=== PATIENT | female | born 1940 | race Caucasian/White ===

== ENCOUNTER 2019-08-15 20:06 | Emergency (ER) | payer OTHER ==
[~2019-08-15] VITALS: Ht 160 cm; Wt 101.2 kg
[2019-08-16] MEDS ORDERED: diphenhdrAMINE HCL 50 MG/1 ML VL IV ONE (00:45)
[2019-08-16] MEDS ORDERED: ONDANSETRON HCL 4 MG/2 ML VIAL IV ONE (00:45)
[2019-08-16] MEDS ORDERED: SODIUM CHLORIDE 0.9% 1,000 ML IV ONE (00:45)
[2019-08-16 00:59] LABS: Urine Bacteria MOD /hpf (None Seen); Urine Blood 1+ /uL (Negative); Urine Specific Gravity 1.018 (1.001-1.035); Urine WBC 2 /hpf (0 - 5)
[2019-08-16 01:12] LABS: Alcohol, Urine < 3.0 mg/dL (0-5); Amphetamine Screen, Urine NEGATIVE (NEGATIVE); Barbiturate Scree,Urine NEGATIVE (NEGATIVE); Benzodiazephine Screen, Urine NEGATIVE (NEGATIVE); Cannabinoid Screen, Urine NEGATIVE (NEGATIVE); Cocaine Screen, Urine NEGATIVE (NEGATIVE); Opiate Scree,Urine NEGATIVE (NEGATIVE); Phencyclidine Screen, Urine NEGATIVE (NEGATIVE)
[2019-08-16] MEDS ORDERED: LORazepam 2MG/ML-1ML VIAL IV ONE ×3 (01:30→07:30)
[2019-08-16 02:11] LABS: Basophils # (auto) 0 uL; Eosinophils # (auto) 0 uL; Hematocrit 40.9 % (36.0-46.0); Hemoglobin 13.5 g/dL (12.2-16.2); Lymphocytes # (auto) 0.7 uL; Lymphocytes % (auto) 4.8 % (10.0-50.0); Mean Corpuscular Hemoglobin 26.5 pg (28.0-32.0); Mean Corpuscular Hgb Conc. 33.1 g/dL (32.0-36.0); Mean Corpuscular Volume 80.1 fL (80.0-100.0); Monocytes # (auto) 0.2 uL; Monocytes % (auto) 1.2 % (0.0-12.0); Neutrophils # (auto) 13.3 uL; Platelet Count (auto) 184 10^3/uL (140-450); Red Cell Distribution Width 15.8 % (11.8-14.3); White Blood Cell 14.2 10^3/uL (4.4-10.8)
[2019-08-16] MEDS ORDERED: InsuLIN REG 1unit/0.01ml Soln (100units/ml) IV ONE (02:15)
[2019-08-16 02:17] LABS: Albumin 3.3 g/dL (3.4-5.0); BUN/Creatinine Ratio 19.3; Calcium 8.9 mg/dL (8.5-10.1); Potassium 4.7 mmol/L (3.5-5.1)
[2019-08-16 02:20] LABS: Bilirubin, Total 0.6 mg/dL (0.2-1.0); Total Protein 7.5 g/dL (6.4-8.2)
[2019-08-16 03:07] LABS: Lactic Acid w/Reflex 2.7 mmol/L (0.4-2.0)
[2019-08-16] MEDS ORDERED: HALOPERIDOL LACTATE 5 MG/ML INJ VIAL IM ONE (04:00)
[2019-08-16] MEDS ORDERED: SODIUM CHLORIDE 0.9% 3,050 ML IV ONE (04:30)
[2019-08-16] MEDS ORDERED: VANCOMYCIN PER PHARMACY 1,000 MG IV SCH (04:30)
[2019-08-16 05:12] LABS: Creatine Kinase IFCC 116 U/L (26-192)
[2019-08-16] MEDS ORDERED: VANCOMYCIN 1GM/250ML 250 ML IV ONE (05:30)
[2019-08-16] MEDS ORDERED: ACETAMINOPHEN 650 MG RECT SUPP PR ONE (06:15)
[2019-08-16 08:00] LABS: INR 1.04 (0.9-1.15); Partial Thromboplastin Time 26.5 sec (23.64-32.05)
[2019-08-16 08:08] VITALS: BP 115/50
== END 2019-08-16 08:25 | disposition short-term general hospital (02) ==
LOC: ER 20:06 → EDBD 20:06 → ER 08-16 08:25
DX: A41.9 Sepsis, unspecified organism (principal); R41.82 Altered mental status, unspecified; E11.9 Type 2 diabetes mellitus without complications; I10 Essential (primary) hypertension; Z90.49 Acquired absence of other specified parts of digestive tract
CPT/HCPCS: 36415; 36600; 70450; 71045; 80053; 80307; 81001; 82140; 82550; 82805; 82962; 83605; 84484; 85025; 85379; 85384; 85610; 85730; 87040; 87086; 87088; 87186; 96361; 96365; 96366; 96372; 96375; 96376; 99285; J1200; J1630; J1815; J2060; J2405; J3370; J7030

== ENCOUNTER 2019-09-16 20:10 | Emergency (ER) | payer OTHER ==
[~2019-09-16] VITALS: Ht 165.1 cm; Wt 77.1 kg
[2019-09-16 22:31] LABS: Basophils # (auto) 0 uL; Basophils % (auto) 0.1 % (0.0-2.0); Eosinophils # (auto) 0.4 uL; Hematocrit 37.6 % (36.0-46.0); Lymphocytes # (auto) 1.5 uL; Lymphocytes % (auto) 14.4 % (10.0-50.0); Monocytes # (auto) 0.5 uL; Platelet Count (auto) 220 10^3/uL (140-450)
[2019-09-16 22:33] LABS: Eosinophils % (auto) 4.2 % (0.0-7.0); Hemoglobin 12.5 g/dL (12.2-16.2); Mean Corpuscular Hemoglobin 26.7 pg (28.0-32.0); Mean Corpuscular Hgb Conc. 33.2 g/dL (32.0-36.0); Mean Corpuscular Volume 80.4 fL (80.0-100.0); Monocytes % (auto) 4.3 % (0.0-12.0); Red Blood Cells 4.67 10^6/uL (4.0-5.20); Red Cell Distribution Width 16.5 % (11.8-14.3); White Blood Cell 10.4 10^3/uL (4.4-10.8)
[2019-09-16 22:36] LABS: Albumin 3.5 g/dL (3.4-5.0); Anion Gap 4 (5-15); Blood Urea Nitrogen 26 mg/dL (7-18); Calcium 8.9 mg/dL (8.5-10.1); Carbon Dioxide 29 mmol/L (21-32); Chloride 100 mmol/L (98-107); Glucose 392 mg/dL (74-106); Sodium 133 mmol/L (136-145)
[2019-09-16 22:42] LABS: Alanine Aminotransferase 21 U/L (13-56); Alkaline Phosphatase 102 U/L (45-117); Aspartate Aminotransferase 13 U/L (15-37); BUN/Creatinine Ratio 18.6; Bilirubin, Total 0.5 mg/dL (0.2-1.0); GFR African American 47 mL/min; GFR Non-African American 39 mL/min; Total Protein 7.5 g/dL (6.4-8.2)
[2019-09-16 22:57] LABS: INR 0.95 (0.9-1.15); Partial Thromboplastin Time 28.2 sec (23.64-32.05)
[2019-09-16] MEDS ORDERED: hydrALAZINE HCL 20 MG/ML VL IV ONE (23:00)
[2019-09-16] MEDS ORDERED: DexAMETHasone SOD PHOS 10MG/1ML VIAL INJ IV ONE (23:00)
[2019-09-16] MEDS ORDERED: LORazepam 2MG/ML-1ML VIAL IV ONE ×2 (23:00→23:15)
[2019-09-16 23:22] LABS: Urine Bacteria FEW /hpf (None Seen); Urine Blood TRACE /uL (Negative); Urine Specific Gravity 1.021 (1.001-1.035); Urine WBC 65 /hpf (0 - 5)
[2019-09-17] MEDS ORDERED: ETOMIDATE (2MG/ML) 20ML VIAL IV ONE ×2 (00:15→00:45)
[2019-09-17] MEDS ORDERED: SUCCINYLCHOLINE CHLORIDE 20 MG/ML 10ML VIAL IV ONE ×2 (00:15→00:45)
[2019-09-17] MEDS ORDERED: MIDAZOLAM DRIP 50 mg/50mL 50 ML IV ONE (00:37)
[2019-09-17] MEDS ORDERED: MIDAZOLAM DRIP 50 mg/50mL 50 ML IV SCH (00:43)
[2019-09-17] MEDS ORDERED: fentaNYL Drip 2500mCg/250mlNS 250 ML IV SCH (00:45)
[2019-09-17 02:10] VITALS: BP 183/81
[2019-09-17] MEDS ORDERED: FUROSEMIDE 20 MG/2 ML VIAL IV ONE (02:45)
[2019-09-17 02:54] VITALS: BP 159/63
== END 2019-09-17 03:16 | disposition short-term general hospital (02) ==
LOC: EDBD 20:10 → EDUNIT# 20:10 → ER 20:13
DX: S06.6X0A Traumatic subarachnoid hemorrhage without loss of consciousness, initial encounter (principal); S06.5X0A Traumatic subdural hemorrhage without loss of consciousness, initial encounter; R41.82 Altered mental status, unspecified; E11.65 Type 2 diabetes mellitus with hyperglycemia; N28.9 Disorder of kidney and ureter, unspecified; Z90.49 Acquired absence of other specified parts of digestive tract; Z88.6 Allergy status to analgesic agent; W01.0XXA Fall on same level from slipping, tripping and stumbling without subsequent striking against object, initial encounter; Y93.02 Activity, running; Y92.89 Other specified places as the place of occurrence of the external cause; Y99.8 Other external cause status
CPT/HCPCS: 31500; 36415; 36600; 70450; 71045; 72125; 80053; 81001; 82805; 82962; 83605; 83880; 84484; 85025; 85610; 85730; 87040; 87070; 87077; 87186; 87205; 93005; 96374; 96375; 96376; 99152; 99291; J0330; J0360; J1100; J2060; J2250; 94002

== ENCOUNTER → 2020-04-08 | Emergency (ER) | payer OTHER ==
[~2020-04-08] VITALS: Ht 170.2 cm; Wt 99.8 kg
[~2020-04-08] MED LIST: PROMETHAZINE HCL 25 MG/ML 1ML IV ONE; SODIUM CHLORIDE 0.9% 1,000 ML IV ONE; SODIUM CHLORIDE 0.9% 500 ML IVB ONE; cefTRIAXone 1GM/50ML D5W 50 ML IV ONE
[2020-04-08 15:41] LABS: Basophils # (auto) 0 10 ^3/uL (0-0.2); Eosinophils # (auto) 0 10 ^3/uL (0-0.8); Eosinophils % (auto) 0.2 % (0.0-7.0); Hematocrit 27.9 % (36.0-46.0); Lymphocytes # (auto) 0.6 10 ^3/uL (0.4-5.4); Lymphocytes % (auto) 7.2 % (10.0-50.0); Mean Corpuscular Hemoglobin 27.1 pg (28.0-32.0); Mean Corpuscular Hgb Conc. 32.1 g/dL (32.0-36.0); Mean Corpuscular Volume 84.4 fL (80.0-100.0); Monocytes # (auto) 0.2 10 ^3/uL (0-1.3); Monocytes % (auto) 2.7 % (0.0-12.0); Neutrophils # (auto) 7.3 10 ^3/uL (1.6-8.6); Neutrophils % (auto) 89.9 % (37.0-80.0); Platelet Count (auto) 161 10^3/uL (140-450); Red Blood Cells 3.31 10^6/uL (4.0-5.20); Red Cell Distribution Width 15.5 % (11.8-14.3); White Blood Cell 8.1 10^3/uL (4.4-10.8)
[2020-04-08 16:00] LABS: Alanine Aminotransferase 28 U/L (13-56); Albumin 2.8 g/dL (3.4-5.0); Anion Gap 4 (5-15); Aspartate Aminotransferase 19 U/L (15-37); BUN/Creatinine Ratio 39.8; Blood Urea Nitrogen 41 mg/dL (7-18); Calcium 8.3 mg/dL (8.5-10.1); Carbon Dioxide 30 mmol/L (21-32); Chloride 105 mmol/L (98-107); GFR African American 67 mL/min; GFR Non-African American 55 mL/min; Glucose 285 mg/dL (74-106); Potassium 4.5 mmol/L (3.5-5.1); Sodium 139 mmol/L (136-145)
[2020-04-08 16:04] LABS: Alkaline Phosphatase 76 U/L (45-117); Bilirubin, Total 0.4 mg/dL (0.2-1.0)
[2020-04-08 17:08] LABS: Urine Amorphous Crystal FEW /hpf (None Seen); Urine Bacteria FEW /hpf (None Seen); Urine Blood Negative /uL (Negative); Urine Specific Gravity 1.013 (1.001-1.035); Urine WBC 9 /hpf (0 - 5)
[2020-04-08 20:00] VITALS: BP 122/86
== END | disposition home or self-care (01) ==
LOC: ER 13:06 → EDUNIT# 13:06 → EDBD 13:06
DX: N39.0 Urinary tract infection, site not specified (principal); E11.65 Type 2 diabetes mellitus with hyperglycemia; D63.8 Anemia in other chronic diseases classified elsewhere; E11.21 Type 2 diabetes mellitus with diabetic nephropathy; E44.0 Moderate protein-calorie malnutrition; J90 Pleural effusion, not elsewhere classified; D35.02 Benign neoplasm of left adrenal gland; K57.90 Diverticulosis of intestine, part unspecified, without perforation or abscess without bleeding; I10 Essential (primary) hypertension; Z68.34 Body mass index [BMI] 34.0-34.9, adult; Z86.73 Personal history of transient ischemic attack (TIA), and cerebral infarction without residual deficits; Z90.49 Acquired absence of other specified parts of digestive tract
CPT/HCPCS: 36415; 71045; 74176; 80053; 81001; 83690; 83735; 84443; 84484; 85025; 93005; 96361; 96365; 96375; 99285; J0696; J2550; J7030; J7040

== ENCOUNTER 2021-12-24 20:08 | Inpatient (IN) | payer OTHER, MEDICAID ==
[~2021-12-24] VITALS: Ht 160 cm; Wt 65.3 kg
[2021-12-24] MEDS ORDERED: SODIUM CHLORIDE 0.9% 500 ML IV ONE (20:45)
[2021-12-24] MEDS ORDERED: VANCOMYCIN 1GM/250ML 250 ML IV ONE (20:45)
[2021-12-24] MEDS ORDERED: dilTIAZem 25 MG/5 ML VIAL IV ONE (20:45)
[2021-12-24] MEDS ORDERED: PIPERACILLIN-TAZO 4.5GM 100 ML IV ONE (20:45)
[2021-12-24 21:30] LABS: Basophils # (auto) 0 10 ^3/uL (0-0.2); Basophils % (auto) 0.1 % (0.0-2.0); Eosinophils # (auto) 0 10 ^3/uL (0-0.8); Hematocrit 37.1 % (36.0-46.0); Hemoglobin 12.3 g/dL (12.2-16.2); Lymphocytes # (auto) 3.2 10 ^3/uL (0.4-5.4); Lymphocytes % (auto) 16.7 % (10.0-50.0); Mean Corpuscular Hemoglobin 27.7 pg (28.0-32.0); Mean Corpuscular Hgb Conc. 33.2 g/dL (32.0-36.0); Mean Corpuscular Volume 83.5 fL (80.0-100.0); Monocytes % (auto) 5.1 % (0.0-12.0); Neutrophils # (auto) 15.1 10 ^3/uL (1.6-8.6); Neutrophils % (auto) 78.1 % (37.0-80.0); Nucleated Red Blood Cells % 0.2 %; Red Blood Cells 4.44 10^6/uL (4.0-5.20); Red Cell Distribution Width 15.8 % (11.8-14.3); White Blood Cell 19.3 10^3/uL (4.4-10.8)
[2021-12-24 21:31] LABS: Albumin 2.7 g/dL (3.4-5.0); Anion Gap 10 (5-15); Aspartate Aminotransferase 62 U/L (15-37); BUN/Creatinine Ratio 48.3; Blood Urea Nitrogen 56 mg/dL (7-18); Calcium 8.4 mg/dL (8.5-10.1); Carbon Dioxide 24 mmol/L (21-32); Chloride 102 mmol/L (98-107); GFR African American 58 mL/min; GFR Non-African American 48 mL/min; Glucose 262 mg/dL (74-106); Lactic Acid w/Reflex 3.4 mmol/L (0.4-2.0); Potassium 4.6 mmol/L (3.5-5.1); Sodium 136 mmol/L (136-145)
[2021-12-24 21:45] LABS: Alanine Aminotransferase 61 U/L (13-56); Alkaline Phosphatase 93 U/L (45-117); Bilirubin, Total 0.6 mg/dL (0.2-1.0); Total Protein 6.3 g/dL (6.4-8.2)
[2021-12-24 21:56] LABS: Urine Bacteria FEW /hpf (None Seen); Urine Blood Negative /uL (Negative); Urine Hyaline Cast FEW /lpf (0 - 2); Urine Specific Gravity 1.018 (1.001-1.035); Urine WBC 1901 /hpf (0 - 5); Urine WBC Clumps PRESENT /hpf (None Seen)
[2021-12-25] VITALS (15 sets, daily range): BP systolic 90–129; BP diastolic 38–56
[2021-12-25] MEDS ORDERED: DEXTROSE (50%) 50ML SYRG IV PRN (00:45)
[2021-12-25] MEDS ORDERED: ACETAMINOPHEN 325 MG TAB PO PRN (00:45)
[2021-12-25] MEDS ORDERED: MORPHINE SULFATE INJECTION 2 MG/ML SYRG IV PRN (00:45)
[2021-12-25] MEDS ORDERED: ONDANSETRON HCL 4 MG/2 ML VIAL IV PRN (00:45)
[2021-12-25] MEDS ORDERED: NITROGLYCERIN 0.4 MG SL TAB SL PRN (00:45)
[2021-12-25] MEDS ORDERED: ENOXAPARIN SOD 100 MG/1 ML SYRINGE SC ONE (02:45)
[2021-12-25] MEDS ORDERED: ENOXAPARIN SOD 80 MG/0.8ML SYRINGE SC ONE (03:00)
[2021-12-25] MEDS ORDERED: ALBUMIN 5% 250 ML IV ONE (05:45)
[2021-12-25] MEDS: ACCU-CHEK COMFORT CURVE STRIP VI SCH ×4 (07:00→20:14)
[2021-12-25] MEDS: InsuLIN REG 1unit/0.01ml Soln (100units/ml) SC SCH ×4 (07:00→20:14)
[2021-12-25] MEDS ORDERED: levoFLOXacin 500MG 100 ML IV SCH (10:00)
[2021-12-25] MEDS ORDERED: ENOXAPARIN SOD 30 MG/0.3 ML SYRINGE SC SCH (10:00)
[2021-12-25] MEDS: PANTOPRAZOLE 40 MG TAB PO SCH (10:00)
[2021-12-25] MEDS ORDERED: CARVEDILOL 3.125 MG TAB PO ONE (11:00)
[2021-12-25] MEDS ORDERED: cefTRIAXone 1GM/50ML D5W 50 ML IV ONE (11:00)
[2021-12-25] MEDS: ASPirin 81 mg TAB PO SCH (11:13)
[2021-12-25] MEDS ORDERED: MULT1TAB28 PO (12:52)
[2021-12-25] MEDS ORDERED: VENL-192 PO (12:52)
[2021-12-25] MEDS ORDERED: FAMO-12 PO (12:52)
[2021-12-25] MEDS ORDERED: FOLI1TAB6 PO (12:52)
[2021-12-25] MEDS ORDERED: METO25TA93 PO (12:52)
[2021-12-25] MEDS ORDERED: SENN1TAB14 PO (12:52)
[2021-12-25] MEDS ORDERED: HYDR50TA15 PO (12:52)
[2021-12-25] MEDS ORDERED: ATOR-47 PO (12:52)
[2021-12-25] MEDS ORDERED: FERR-20 PO (12:52)
[2021-12-25] MEDS ORDERED: DILT40TA PO (12:52)
[2021-12-25] MEDS ORDERED: LOSA25TA38 PO (12:52)
[2021-12-25] MEDS ORDERED: LEVO200T7 PO (13:02)
[2021-12-25] MEDS ORDERED: FURO1TAB33 PO (13:02)
[2021-12-25] MEDS ORDERED: ASPI1TAB20 PO (13:02)
[2021-12-25] MEDS ORDERED: OLAN2.5T38 PO (13:02)
[2021-12-25] MEDS: Glucerna 1.2 Cal 1Liter BOTTLE GT SCH (15:16)
[2021-12-25] MEDS: CARVEDILOL 3.125 MG TAB PO SCH (20:16)
[2021-12-26] VITALS (36 sets, daily range): BP systolic 101–126; BP diastolic 38–52
[2021-12-26] MEDS ORDERED: dilTIAZem 25 MG/5 ML VIAL IV ONE (04:45)
[2021-12-26] MEDS: ACCU-CHEK COMFORT CURVE STRIP VI SCH ×4 (05:21→21:57)
[2021-12-26] MEDS: InsuLIN REG 1unit/0.01ml Soln (100units/ml) SC SCH ×4 (05:52→22:03)
[2021-12-26] MEDS ORDERED: cefTRIAXone 1GM/50ML D5W 50 ML IV SCH (09:00)
[2021-12-26 09:20] LABS: Basophils # (auto) 0 10 ^3/uL (0-0.2); Eosinophils # (auto) 0 10 ^3/uL (0-0.8); Hematocrit 33.2 % (36.0-46.0); Lymphocytes # (auto) 0.5 10 ^3/uL (0.4-5.4); Lymphocytes % (auto) 3.5 % (10.0-50.0); Mean Corpuscular Hemoglobin 27.6 pg (28.0-32.0); Mean Corpuscular Hgb Conc. 33.3 g/dL (32.0-36.0); Monocytes # (auto) 0.7 10 ^3/uL (0-1.3); Monocytes % (auto) 5.5 % (0.0-12.0); Neutrophils # (auto) 12.4 10 ^3/uL (1.6-8.6); Red Cell Distribution Width 15.9 % (11.8-14.3); White Blood Cell 13.6 10^3/uL (4.4-10.8)
[2021-12-26 09:40] LABS: Potassium 4.8 mmol/L (3.5-5.1)
[2021-12-26] MEDS: ASPirin 81 mg TAB PO SCH (09:46)
[2021-12-26] MEDS: CARVEDILOL 3.125 MG TAB PO SCH (09:47)
[2021-12-26 10:00] LABS: Albumin 2.6 g/dL (3.4-5.0); BUN/Creatinine Ratio 50.4; Bilirubin, Total 0.6 mg/dL (0.2-1.0); Calcium 9.1 mg/dL (8.5-10.1); Total Protein 6.5 g/dL (6.4-8.2)
[2021-12-26] MEDS: PANTOPRAZOLE 40 MG TAB PO SCH (10:00)
[2021-12-26] MEDS ORDERED: BUMETANIDE 2.5mg/10ml (0.25 mg/ml) INJ IV ONE (11:00)
[2021-12-26] MEDS: PIPERACILLIN-TAZOB 2.25GM 50 ML IV SCH ×2 (11:30→17:27)
[2021-12-26] MEDS: dilTIAZem 125mg/125ml BAG KIT 125 ML IV SCH (12:58)
[2021-12-26] MEDS: BUMETANIDE 2.5mg/10ml (0.25 mg/ml) INJ IV SCH (17:28)
[2021-12-27] VITALS (73 sets, daily range): BP systolic 92–161; BP diastolic 11–61
[2021-12-27 04:25] LABS: Albumin 2.7 g/dL (3.4-5.0); Calcium 9.1 mg/dL (8.5-10.1); Potassium 4.6 mmol/L (3.5-5.1)
[2021-12-27 04:28] LABS: BUN/Creatinine Ratio 66.7; Bilirubin, Total 0.5 mg/dL (0.2-1.0); Total Protein 6.1 g/dL (6.4-8.2)
[2021-12-27] MEDS: BUMETANIDE 2.5mg/10ml (0.25 mg/ml) INJ IV SCH ×2 (05:22→17:25)
[2021-12-27] MEDS: PIPERACILLIN-TAZOB 2.25GM 50 ML IV SCH ×5 (05:22→23:28)
[2021-12-27] MEDS: ACCU-CHEK COMFORT CURVE STRIP VI SCH ×4 (05:22→21:58)
[2021-12-27] MEDS: InsuLIN REG 1unit/0.01ml Soln (100units/ml) SC SCH ×4 (05:33→21:58)
[2021-12-27 05:46] LABS: Basophils # (auto) 0 10 ^3/uL (0-0.2); Basophils % (auto) 0.1 % (0.0-2.0); Eosinophils # (auto) 0 10 ^3/uL (0-0.8); Lymphocytes # (auto) 1.1 10 ^3/uL (0.4-5.4); Lymphocytes % (auto) 11.9 % (10.0-50.0); Mean Corpuscular Hemoglobin 27.5 pg (28.0-32.0); Mean Corpuscular Hgb Conc. 33.2 g/dL (32.0-36.0); Mean Corpuscular Volume 82.8 fL (80.0-100.0); Monocytes # (auto) 0.7 10 ^3/uL (0-1.3); Monocytes % (auto) 8.1 % (0.0-12.0); Neutrophils # (auto) 7.3 10 ^3/uL (1.6-8.6); Neutrophils % (auto) 79.9 % (37.0-80.0); Nucleated Red Blood Cells % 0.1 %; Red Blood Cells 3.62 10^6/uL (4.0-5.20); Red Cell Distribution Width 15.6 % (11.8-14.3); White Blood Cell 9.1 10^3/uL (4.4-10.8)
[2021-12-27] MEDS ORDERED: FUROSEMIDE 40 MG/4 ML VIAL IV ONE (09:45)
[2021-12-27] MEDS ORDERED: METOPROLOL TARTRATE 1MG/1ML-5ML VIAL IV ONE ×2 (09:45→09:53)
[2021-12-27] MEDS ORDERED: FUROSEMIDE 40 MG/4 ML VIAL ONE (09:53)
[2021-12-27] MEDS ORDERED: DIGOXIN (250MCG/ML) 2 ML AMPULE IV ONE (10:00)
[2021-12-27] MEDS: DOBUTamine 1000MCG/ML 250 ML IV SCH (10:00)
[2021-12-27] MEDS ORDERED: DOBUTamine 1000MCG/ML 250 ML IV ONE (10:01)
[2021-12-27] MEDS: dilTIAZem 125mg/125ml BAG KIT 125 ML IV SCH (10:38)
[2021-12-27] MEDS ORDERED: PHENYLEPHRINE IV 0 ML IV ONE (10:41)
[2021-12-27] MEDS: PHENYLEPHRINE IV 250 ML IV SCH ×2 (10:45→19:05)
[2021-12-27] MEDS: PANTOPRAZOLE 40 MG/10 ML VIAL INJ IV SCH (11:13)
[2021-12-27] MEDS: ASPirin 81 mg TAB PO SCH (11:15)
[2021-12-27 12:06] LABS: INR 1.11 (0.9-1.15)
[2021-12-27] MEDS ORDERED: LIDOCAINE 1% (LOCAL ANESTH.) PF 5ml SDV ID ONE (17:15)
[2021-12-27] MEDS: SODIUM CHLOR 0.9% PF (SALINE LOCK) 10ML VIAL/SYR IV SCH (21:57)
[2021-12-28] VITALS (49 sets, daily range): BP systolic 96–155; BP diastolic 28–83
[2021-12-28] MEDS: PHENYLEPHRINE IV 250 ML IV SCH ×3 (03:25→20:05)
[2021-12-28 04:28] LABS: Potassium 3.9 mmol/L (3.5-5.1)
[2021-12-28 04:33] LABS: Albumin 2.6 g/dL (3.4-5.0); BUN/Creatinine Ratio 57.4; Bilirubin, Direct 0.3 mg/dL (0-0.2); Calcium 9.1 mg/dL (8.5-10.1)
[2021-12-28 04:36] LABS: Bilirubin, Total 0.7 mg/dL (0.2-1.0)
[2021-12-28] MEDS: BUMETANIDE 2.5mg/10ml (0.25 mg/ml) INJ IV SCH ×2 (05:55→18:17)
[2021-12-28] MEDS: PIPERACILLIN-TAZOB 2.25GM 50 ML IV SCH ×4 (05:55→23:41)
[2021-12-28] MEDS: ACCU-CHEK COMFORT CURVE STRIP VI SCH ×4 (06:02→21:38)
[2021-12-28] MEDS: InsuLIN REG 1unit/0.01ml Soln (100units/ml) SC SCH ×4 (06:03→21:39)
[2021-12-28] MEDS: DOBUTamine 1000MCG/ML 250 ML IV SCH (08:22)
[2021-12-28] MEDS: PANTOPRAZOLE 40 MG/10 ML VIAL INJ IV SCH (08:30)
[2021-12-28] MEDS: ASPirin 81 mg TAB PO SCH (08:30)
[2021-12-28] MEDS: SODIUM CHLOR 0.9% PF (SALINE LOCK) 10ML VIAL/SYR IV SCH ×2 (08:30→21:38)
[2021-12-28] MEDS: dilTIAZem 125mg/125ml BAG KIT 125 ML IV SCH (09:17)
[2021-12-28] MEDS ORDERED: AMIODARONE HCL 150 MG in D5W 5% 100 ML IV ONE (16:45)
[2021-12-28] MEDS ORDERED: AMIODARONE 450mg/250ml AE 250 ML IV SCH (17:00)
[2021-12-28] MEDS: Glucerna 1.2 Cal 1Liter BOTTLE GT SCH (17:07)
[2021-12-28] MEDS: traMADol HCL 50 MG TAB PO PRN (17:07)
[2021-12-28] MEDS ORDERED: PROPOFOL 100 ML IV SCH (18:00)
[2021-12-28] MEDS ORDERED: fentaNYL Drip 2500mCg/250mlNS 250 ML IV SCH (18:00)
[2021-12-28] MEDS: AMIODARONE 450mg/250ml AE 250 ML IV SCH (23:41)
[2021-12-29] VITALS (65 sets, daily range): BP systolic 97–150; BP diastolic 16–64
[2021-12-29 04:10] LABS: Basophils # (auto) 0 10 ^3/uL (0-0.2); Basophils % (auto) 0.1 % (0.0-2.0); Eosinophils # (auto) 0 10 ^3/uL (0-0.8); Hemoglobin 9.5 g/dL (12.2-16.2); Lymphocytes # (auto) 1.1 10 ^3/uL (0.4-5.4); Lymphocytes % (auto) 11.8 % (10.0-50.0); Mean Corpuscular Hemoglobin 28.3 pg (28.0-32.0); Mean Corpuscular Hgb Conc. 33.9 g/dL (32.0-36.0); Mean Corpuscular Volume 83.5 fL (80.0-100.0); Monocytes # (auto) 0.6 10 ^3/uL (0-1.3); Monocytes % (auto) 6.7 % (0.0-12.0); Neutrophils # (auto) 7.6 10 ^3/uL (1.6-8.6); Neutrophils % (auto) 81.4 % (37.0-80.0); Red Blood Cells 3.35 10^6/uL (4.0-5.20); Red Cell Distribution Width 15.9 % (11.8-14.3); White Blood Cell 9.3 10^3/uL (4.4-10.8)
[2021-12-29 04:22] LABS: Albumin 2.4 g/dL (3.4-5.0); Calcium 9.1 mg/dL (8.5-10.1); Potassium 4.1 mmol/L (3.5-5.1)
[2021-12-29 04:25] LABS: BUN/Creatinine Ratio 47.2
[2021-12-29] MEDS: PHENYLEPHRINE IV 250 ML IV SCH ×3 (04:25→21:05)
[2021-12-29 04:28] LABS: Bilirubin, Total 0.6 mg/dL (0.2-1.0); Total Protein 5.8 g/dL (6.4-8.2)
[2021-12-29] MEDS: PIPERACILLIN-TAZOB 2.25GM 50 ML IV SCH ×4 (06:02→23:36)
[2021-12-29] MEDS: BUMETANIDE 2.5mg/10ml (0.25 mg/ml) INJ IV SCH ×2 (06:02→17:48)
[2021-12-29] MEDS: ACCU-CHEK COMFORT CURVE STRIP VI SCH ×4 (06:11→23:28)
[2021-12-29] MEDS: InsuLIN REG 1unit/0.01ml Soln (100units/ml) SC SCH ×4 (06:17→23:34)
[2021-12-29] MEDS: AMIODARONE 450mg/250ml AE 250 ML IV SCH ×2 (07:46→23:27)
[2021-12-29] MEDS ORDERED: SODIUM CHLORIDE 0.9% 1,000 ML IV ONE (10:00)
[2021-12-29] MEDS: PANTOPRAZOLE 40 MG/10 ML VIAL INJ IV SCH (10:01)
[2021-12-29] MEDS: ASPirin 81 mg TAB PO SCH (10:02)
[2021-12-29] MEDS: SODIUM CHLOR 0.9% PF (SALINE LOCK) 10ML VIAL/SYR IV SCH ×2 (10:02→23:32)
[2021-12-29] MEDS: dilTIAZem 125mg/125ml BAG KIT 125 ML IV SCH (12:00)
[2021-12-30] VITALS (19 sets, daily range): BP systolic 108–161; BP diastolic 36–65
[2021-12-30] MEDS ORDERED: TEMAZEPAM 15 MG CAP PO ONE (00:30)
[2021-12-30 04:40] LABS: Basophils # (auto) 0 10 ^3/uL (0-0.2); Basophils % (auto) 0.2 % (0.0-2.0); Eosinophils # (auto) 0 10 ^3/uL (0-0.8); Hematocrit 27.5 % (36.0-46.0); Hemoglobin 9.5 g/dL (12.2-16.2); Lymphocytes # (auto) 0.7 10 ^3/uL (0.4-5.4); Lymphocytes % (auto) 7.5 % (10.0-50.0); Mean Corpuscular Hemoglobin 28.8 pg (28.0-32.0); Mean Corpuscular Hgb Conc. 34.5 g/dL (32.0-36.0); Mean Corpuscular Volume 83.4 fL (80.0-100.0); Monocytes # (auto) 0.5 10 ^3/uL (0-1.3); Monocytes % (auto) 5.5 % (0.0-12.0); Neutrophils # (auto) 7.9 10 ^3/uL (1.6-8.6); Neutrophils % (auto) 86.8 % (37.0-80.0); Red Cell Distribution Width 15.6 % (11.8-14.3); White Blood Cell 9.1 10^3/uL (4.4-10.8)
[2021-12-30 04:58] LABS: Albumin 2.4 g/dL (3.4-5.0); Calcium 8.6 mg/dL (8.5-10.1); Potassium 4.2 mmol/L (3.5-5.1)
[2021-12-30 05:01] LABS: Bilirubin, Total 0.5 mg/dL (0.2-1.0); Total Protein 5.8 g/dL (6.4-8.2)
[2021-12-30 05:08] LABS: Urine Bacteria FEW /hpf (None Seen); Urine Blood TRACE /uL (Negative); Urine Specific Gravity 1.032 (1.001-1.035); Urine WBC 26 /hpf (0 - 5)
[2021-12-30 05:25] LABS: BUN/Creatinine Ratio 46.1
[2021-12-30] MEDS: PHENYLEPHRINE IV 250 ML IV SCH ×3 (05:25→22:05)
[2021-12-30] MEDS: PIPERACILLIN-TAZOB 2.25GM 50 ML IV SCH ×3 (05:37→18:00)
[2021-12-30 05:39] LABS: Protein, Urine 133.9 mg/dL (0.0-11.9)
[2021-12-30] MEDS: BUMETANIDE 2.5mg/10ml (0.25 mg/ml) INJ IV SCH ×2 (05:39→18:00)
[2021-12-30] MEDS: ACCU-CHEK COMFORT CURVE STRIP VI SCH ×4 (05:44→22:50)
[2021-12-30] MEDS: InsuLIN REG 1unit/0.01ml Soln (100units/ml) SC SCH ×4 (05:55→22:51)
[2021-12-30] MEDS ORDERED: NITROGLYCERIN 2% OINT 1GM PKG TD SCH (06:45)
[2021-12-30] MEDS: PANTOPRAZOLE 40 MG/10 ML VIAL INJ IV SCH (10:25)
[2021-12-30] MEDS: ASPirin 81 mg TAB PO SCH (10:25)
[2021-12-30] MEDS: SODIUM CHLOR 0.9% PF (SALINE LOCK) 10ML VIAL/SYR IV SCH ×2 (10:26→22:50)
[2021-12-30] MEDS ORDERED: metOLazone 5 MG TAB PEG ONE (15:45)
[2021-12-30] MEDS ORDERED: ALBUMIN 25% 100 ML IV ONE (15:45)
[2021-12-30] MEDS: METOPROLOL TARTRATE 25 MG TAB GT SCH ×2 (16:04→22:00)
[2021-12-30] MEDS: AMIODARONE 450mg/250ml AE 250 ML IV SCH (20:00)
[2021-12-30] MEDS: traMADol HCL 50 MG TAB PO PRN (23:51)
[2021-12-31] MEDS: PIPERACILLIN-TAZOB 2.25GM 50 ML IV SCH
[2021-12-31 00:01] VITALS: BP 139/44
[2021-12-31 00:50] VITALS: BP 139/56
[2021-12-31 03:01] VITALS: BP 106/31
[2021-12-31 05:49] LABS: Potassium 4.8 mmol/L (3.5-5.1)
[2021-12-31 05:58] LABS: Albumin 2.7 g/dL (3.4-5.0); BUN/Creatinine Ratio 39.6; Bilirubin, Direct 0.3 mg/dL (0-0.2); Bilirubin, Total 0.6 mg/dL (0.2-1.0); Calcium 9.1 mg/dL (8.5-10.1); Total Protein 5.9 g/dL (6.4-8.2)
[2021-12-31] MEDS: ACCU-CHEK COMFORT CURVE STRIP VI SCH ×4 (07:00→21:32)
[2021-12-31] MEDS: InsuLIN REG 1unit/0.01ml Soln (100units/ml) SC SCH ×4 (08:01→21:47)
[2021-12-31] MEDS: BUMETANIDE 2.5mg/10ml (0.25 mg/ml) INJ IV SCH (08:01)
[2021-12-31 09:00] VITALS: BP 107/34
[2021-12-31] MEDS: SODIUM CHLOR 0.9% PF (SALINE LOCK) 10ML VIAL/SYR IV SCH ×2 (10:00→21:32)
[2021-12-31] MEDS: PANTOPRAZOLE 40 MG/10 ML VIAL INJ IV SCH (10:00)
[2021-12-31] MEDS: ALBUMIN 25% 50 ML IV SCH ×2 (10:00→18:10)
[2021-12-31] MEDS: ASPirin 81 mg TAB PO SCH (10:00)
[2021-12-31] MEDS: METOPROLOL TARTRATE 25 MG TAB GT SCH ×2 (10:00→21:32)
[2021-12-31] MEDS ORDERED: POTASSIUM CHL 20MEQ/100ML 100 ML IV SCH (10:15)
[2021-12-31] MEDS: AMIODARONE 450mg/250ml AE 250 ML IV SCH (11:00)
[2021-12-31] MEDS ORDERED: AMIODARONE HCL 200 MG TAB PO ONE (12:15)
[2021-12-31] MEDS ORDERED: PIPERACILLIN-TAZOB 2.25GM 50 ML IV SCH (20:00)
[2021-12-31] MEDS ORDERED: AMIODARONE HCL 200 MG TAB PO SCH (22:00)
[2022-01-01] MEDS ORDERED: EPINEPHrine HCL 1 MG/10 ML SYRG IV ONE (01:02)
== END 2022-01-01 01:03 | DRG 871 ==
LOC: EDBD 20:08 → ER 20:08 → OVERFLOW 12-25 00:45 → DOU IN ICU 12-25 03:33 → ICU WEST 12-26 18:23 → DOU IN ICU 12-30 16:56 → TELE-EAST 12-31 18:50
PROVIDERS: ADMIT Nurse Practitioner; ATTEND Internal Medicine
PROC: 5A09357 Assistance with Respiratory Ventilation, Less than 24 Consecutive Hours, Continuous Positive Airway Pressure (ICD-10-PCS; principal; 2021-12-27)
PROC: 5A09357 Assistance with Respiratory Ventilation, Less than 24 Consecutive Hours, Continuous Positive Airway Pressure (ICD-10-PCS; 2021-12-28)
PROC: 5A09357 Assistance with Respiratory Ventilation, Less than 24 Consecutive Hours, Continuous Positive Airway Pressure (ICD-10-PCS; 2021-12-29)
PROC: 5A09357 Assistance with Respiratory Ventilation, Less than 24 Consecutive Hours, Continuous Positive Airway Pressure (ICD-10-PCS; 2021-12-31)
DX: A41.9 Sepsis, unspecified organism (principal); E43 Unspecified severe protein-calorie malnutrition; I21.4 Non-ST elevation (NSTEMI) myocardial infarction; I50.43 Acute on chronic combined systolic (congestive) and diastolic (congestive) heart failure; K72.00 Acute and subacute hepatic failure without coma; J96.01 Acute respiratory failure with hypoxia; N17.0 Acute kidney failure with tubular necrosis; N39.0 Urinary tract infection, site not specified; I48.91 Unspecified atrial fibrillation; Z20.822 Contact with and (suspected) exposure to COVID-19; R65.20 Severe sepsis without septic shock; N18.32 Chronic kidney disease, stage 3b; E11.22 Type 2 diabetes mellitus with diabetic chronic kidney disease; Z68.25 Body mass index [BMI] 25.0-25.9, adult; Z93.1 Gastrostomy status; Z88.8 Allergy status to other drugs, medicaments and biological substances; Z86.73 Personal history of transient ischemic attack (TIA), and cerebral infarction without residual deficits; Z90.49 Acquired absence of other specified parts of digestive tract; Z95.1 Presence of aortocoronary bypass graft
CPT/HCPCS: 36415; 36569; 36600; 71045; 74018; 76705; 80048; 80053; 80076; 81001; 82570; 82805; 82962; 83036; 83605; 83880; 84156; 84300; 84443; 84484; 85025; 85379; 85610; 85730; 87040; 87081; 87086; 93005; 93306; 94660; 96365; 96368; 96375; 99291; C9113; G0378; J0696; J1815; J2543; J7060; P9047